=== PATIENT | female | born 1975 | race Caucasian/White ===

== ENCOUNTER 2016-11-28 18:06 | Emergency (ER) | payer BC, MEDICAID ==
[~2016-11-28] VITALS: Ht 175.3 cm; Wt 74.5 kg
[2016-11-28 18:19] VITALS: Ht 175.3 cm; Wt 74.5 kg
[2016-11-28] MEDS ORDERED: TRAM50TA2 PO (18:40)
[2016-11-28] MEDS ORDERED: DOXY100T20 PO (18:40)
--- NOTE | 2016-11-28 18:46 | ERD ---
ER Documentation Chief Complaint Date/Time DATE: 11/28/16 TIME: 18:42 Chief Complaint left side facial swelling since yesterday, lethargy HPI 41-year-old female comes emergency department with dental pain and left-sided facial swelling 1 day. She states that this tooth has been bothering her over the last month, the pain got better however she then developed some facial swelling that started yesterday. She has tried taking ibuprofen for the pain. She states that she is allergic to "all antibiotics". She states that the only medication that she is not allergic to is doxycycline. She is aware that she needs to see a dentist. She has no trouble swallowing, voice changes, drooling. She denies any assault or fall or injuries regarding this. ROS All systems reviewed and are negative except as per history of present illness. Medications Home Meds Active Scripts Tramadol HCl (Tramadol HCl) 50 Mg Tablet, 50 MG PO Q4 Y for PAIN, #20 TAB Prov:NAGA ADAME PA-C 11/28/16 Doxycycline Hyclate* (Doxycycline Hyclate*) 100 Mg Tablet.dr, 100 MG PO BID for 10 Days, TAB Prov:NAGA ADAME PA-C 11/28/16 Allergies Allergies: Uncoded Allergies: ALL ANTIBIOTICS (Allergy, Unknown, 11/28/16) PMhx/Soc Hx Alcohol Use: No Hx Substance Use: No Hx Tobacco Use: Yes Smoking Status: Light tobacco smoker Physical Exam Vitals Vital Signs Date Time Temp Pulse Resp B/P Pulse Ox O2 Delivery O2 Flow Rate FiO2 11/28/16 18:19 96.9 96 18 109/71 98 Physical Exam General: Well-developed, well-nourished. The patient appears in no acute distress. HEENT: Head is normocephalic, atraumatic. No scleral icterus. She has multiple caries, multiple teeth missing. Lower aspect on the left side shows diffuse swelling, she is tender to palpation, there is no fluctuance. There are no skin changes. No trismus. Oropharynx is clear. Neck: Supple. Nontender. Lungs: Clear to auscultation. Normal air movement. Heart: Regular rate and rhythm. S1 and S2 are normal. No murmurs, gallops, or rubs. Abdomen: Nondistended. Extremities: No clubbing or cyanosis. Moving extremities x 4. No weakness. Neurologic: Alert and oriented 3. No focal deficits. Normal speech and gait. Skin: Normal turgor. No rash or lesions. Procedures/MDM 40-year-old female presents with a dental abscess on the left side, duration is 1 day. She reports that she is allergic to every antibiotic and only when she can tolerate his doxycycline. She states that she was try to get an appointment to see a dentist, she is aware that she needs to follow-up with a dentist for this. It was discussed that she likely needs a tooth pulled for definitive treatment. She will be given a list of clinics as well as dental facilities for this. She was advised to eat soft foods, continue ibuprofen, tramadol will be given for moderate to severe pain. She is to return if she has any fevers, worsening pain or swelling Departure Diagnosis: Primary Impression: Dental abscess Condition: Good Patient Instructions: Dental Abscess Referrals: [facility] YOU HAVE RECEIVED A MEDICAL SCREENING EXAM AND THE RESULTS INDICATE THAT YOU DO NOT HAVE A CONDITION THAT REQUIRES URGENT TREATMENT IN THE EMERGENCY DEPARTMENT. FURTHER EVALUATION AND TREATMENT OF YOUR CONDITION CAN WAIT UNTIL YOU ARE SEEN IN YOUR DOCTORS OFFICE WITHIN THE NEXT 1-2 DAYS. IT IS YOUR RESPONSIBILITY TO MAKE AN APPOINTMENT FOR FOLOW-UP CARE. IF YOU HAVE A PRIMARY DOCTOR --you should call your primary doctor and schedule an appointment IF YOU DO NOT HAVE A PRIMARY DOCTOR YOU CAN CALL OUR PHYSICIAN REFERRAL HOTLINE AT IF YOU CAN NOT AFFORD TO SEE A PHYSICIAN YOU CAN CHOSE FROM THE FOLLOWING [facility] CL[facility] [address] [facility]. [facility] [address] [facility] [address] [facility] [address] [facility]. [facility] [address] [facility]. [facility]. [address] [facility]. [facility] YOU HAVE RECEIVED A MEDICAL SCREENING EXAM AND THE RESULTS INDICATE THAT YOU DO NOT HAVE A CONDITION THAT REQUIRES URGENT TREATMENT IN THE EMERGENCY DEPARTMENT. FURTHER EVALUATION AND TREATMENT OF YOUR CONDITION CAN WAIT UNTIL YOU ARE SEEN IN YOUR DOCTORS OFFICE WITHIN THE NEXT 1-2 DAYS. IT IS YOUR RESPONSIBILITY TO MAKE AN APPOINTMENT FOR FOLOW-UP CARE. IF YOU HAVE A PRIMARY DOCTOR --you should call your primary doctor and schedule and appointment IF YOU DO NOT HAVE A PRIMARY DOCTOR YOU CAN CALL OUR PHYSICIAN REFERRAL HOTLINE AT . IF YOU CAN NOT AFFORD TO SEE A PHYSICIAN YOU CAN CHOSE FROM THE FOLLOWING [facility] INSTITUTIONS: [facility] [address] [place] [address] [facility] [address] [place], [place] [id number] [place] [address] [address] [place] [address] [facility] Additional Instructions: Follow-up with a dentist tomorrow. Return sooner for any worsening or new symptoms. NAGA ADAME PA-C Nov 28, 2016 18:46
== END 2016-11-28 19:19 | disposition home or self-care (01) ==
LOC: FTE 18:06
DX: K04.7 Periapical abscess without sinus (principal); F17.210 Nicotine dependence, cigarettes, uncomplicated
CPT/HCPCS: 99284